=== PATIENT | male | born 1970 | race Caucasian/White ===

== ENCOUNTER 2018-06-06 22:02 | Emergency (ER) | payer OTHER ==
[~2018-06-06] VITALS: Ht 180.3 cm; Wt 68.2 kg
[~2018-06-06 22:02] MED LIST: NO HOME MEDICATIONS
[2018-06-06 22:08] VITALS: BP 152/96; TEMP 99.5
[2018-06-06] MEDS ORDERED: NORCO 325 MG-7.1 TAB PO (22:59)
[2018-06-06 23:21] VITALS: PULSE 80
== END 2018-06-06 23:21 | disposition home or self-care (01) ==
LOC: COL.ER 22:02
DX: K04.7 Periapical abscess without sinus (principal); F17.210 Nicotine dependence, cigarettes, uncomplicated